=== PATIENT | female | born 1990 | race Hispanic/Latino ===

== ENCOUNTER 2016-08-18 16:44 | Emergency (ER) | payer SELFPAY ==
[2016-08-18 18:54] LABS: Bacteria,Urine 1+ /HPF (Negative); Mucus,Urine 2+ /HPF
[2016-08-18 18:55] LABS: Bilirubin,Urine NEG (Negative); Blood,Urine LG (Negative); Ketones,Urine TR mg/dL (Negative); Leukocyte Esterase,Urine MOD (Negative); Nitrite,Urine NEG (Negative); Urobilinogen,Urine < 2.0 mg/dL (<2.0)
[2016-08-18 19:00] LABS: Basophils % (Auto) 0.9 % (0.0-1.8); Eosinophils % (Auto) 1.6 % (0.0-4.3); Hematocrit 42.3 % (30.3-42.9); Hemoglobin 14.1 gm/dl (10.1-14.3); Mean Corpuscular HGB Conc 33 % (30-34); Mean Corpuscular Hemoglobin 31 pg (28-32); Mean Corpuscular Volume 92 fl (79-97); Platelet Count 239 K/mm3 (140-440); Red Cell Distribution Width 14.1 % (13.2-15.2); White Blood Count 10.4 K/mm3 (4.5-11.0)
[2016-08-18 20:04] LABS: Alanine Aminotransferase 22 units/L (7-56); Albumin 4.3 g/dL (3.9-5); Albumin/Globulin Ratio 1.5 %; Alkaline Phosphatase 96 units/L (35-129); Anion Gap 17 mmol/L; BUN/Creatinine Ratio 18.33; Bilirubin,Total 0.2 mg/dL (0.1-1.2); Blood Urea Nitrogen 11 mg/dL (7-17); Calcium 9.3 mg/dL (8.4-10.2); Carbon Dioxide 25 mmol/L (22-30); Chloride 103.3 mmol/L (98-107); Glucose 104 mg/dL (65-100); Potassium 4.9 mmol/L (3.6-5.0); Sodium 140 mmol/L (137-145); Total Protein 7.1 g/dL (6.3-8.2)
--- NOTE | 2016-08-18 21:39 | Ultrasound Report ---
FINAL REPORT EXAM: US OB \T\lt; = 14 WEEKS FETUS HISTORY: lower abd pain/ vaginal bleeding TECHNIQUE: Real-time sonography was performed of the pelvis transabdominally and endovaginally. Images are submitted for interpretation. PRIORS: None. FINDINGS: The uterus appears normal measuring 8.8 x 4.7 x 6.6 cm. There is an IUD that is adequately positioned in the endometrial canal. The endometrium appears mildly thickened and homogeneous, measuring 1.7 cm. The right ovary appears normal measuring 3.8 x 2.6 x 2.6 cm. There is a normal appearing follicle in the right ovary measuring 1.5 cm. The left ovary appears normal measuring 2.8 x 1.7 x 1.8 cm. Color duplex evaluation of the ovaries shows flow bilaterally. There is a small amount of free pelvic fluid. IMPRESSION: Mild thickening of the endometrium. Otherwise, normal pelvic ultrasound. The IUD appears adequately positioned in the endometrial canal Small amount of free pelvic fluid likely physiologic in nature.
[2016-08-19] MEDS ORDERED: ULTRAM PO ONE (00:47)
[2016-08-19] MEDS ORDERED: TORADOL IM ONE (00:47)
--- NOTE | 2016-08-19 00:48 | Emergency Department Report ---
ED General Adult HPI - General Chief complaint: Vaginal Bleeding Stated complaint: POSS MISCARRIAGE Time Seen by Provider: 08/19/16 00:36 Source: patient Mode of arrival: Ambulatory Limitations: No Limitations - History of Present Illness Initial comments: This is a 26-year-old female. She is previously unknown to me. Her medical transcription radiology is Dr. Willett. Patient reports a history of irregular menstruation. She presents to the ER wondering if she is . She reports positive home test. She has mild lower abdominal pressure , back pain, vaginal spotting, brown, yellow whitish vaginal discharge. No irritative or obstructive urinary symptoms. No vomiting. No severe right lower quadrant pain. Patient is sexually active with one male partner, does not wear condoms, no history of dyspareunia. Pain increases with palpation, decreases when laying on her side. -: Gradual Location: abdomen Radiation: back Quality: aching Consistency: intermittent Improves with: rest Worsens with: movement Associated Symptoms: malaise. denies: confusion, chest pain, cough, diaphoresis , fever/chills, headaches, loss of appetite, shortness of breath, syncope, weakness - Related Data Previous Rx's Medication Instructions Recorded Last Taken Type Ketorolac [Toradol] 10 mg PO Q6H PRN #20 tablet 08/19/16 Unknown Rx Allergies Allergy/AdvReac Type Severity Reaction Status Date / Time No Known Allergies Allergy Unverified 08/18/16 17:14 ED Review of Systems ROS: Stated complaint: POSS MISCARRIAGE Other details as noted in HPI Constitutional: denies: malaise Eyes: denies: vision change ENT: denies: epistaxis Respiratory: denies: cough Cardiovascular: denies: chest pain Gastrointestinal: abdominal pain Genitourinary: abnormal menses Musculoskeletal: back pain Skin: denies: lesions Neurological: denies: headache Psychiatric: anxiety ED Past Medical Hx - Past Medical History Previous Medical History?: No - Surgical History Past Surgical History?: No - Social History Smoking Status: Current Every Day Smoker Substance Use Type: None - Medications Home Medications: Home Medications Medication Instructions Recorded Confirmed Last Taken Type Ketorolac [Toradol] 10 mg PO Q6H PRN #20 tablet 08/19/16 Unknown Rx ED Physical Exam - General Limitations: No Limitations General appearance: alert, in no apparent distress - Head Head exam: Present: atraumatic, normocephalic - Eye Eye exam: Present: normal appearance, EOMI. Absent: nystagmus - ENT ENT exam: Present: normal exam, normal orophraynx, mucous membranes moist, normal external ear exam - Neck Neck exam: Present: normal inspection, full ROM. Absent: tenderness, meningismus - Respiratory Respiratory exam: Present: normal lung sounds bilaterally. Absent: respiratory distress, wheezes, rales, rhonchi, stridor, chest wall tenderness, accessory muscle use, decreased breath sounds, prolonged expiratory - Cardiovascular Cardiovascular Exam: Present: regular rate, normal rhythm, normal heart sounds. Absent: bradycardia, tachycardia, irregular rhythm, systolic murmur, diastolic murmur, rubs, gallop - GI/Abdominal GI/Abdominal exam: Present: soft, tenderness (all suprapubic and left lower quadrant tenderness. There is no right lower quadrant tenderness, rebound or guarding.), normal bowel sounds. Absent: distended, guarding, rebound, rigid, pulsatile mass - External exam: Present: normal external exam Speculum exam: Present: normal speculum exam, vaginal discharge Bi-manual exam: Present: normal bi-manual exam, other (during gynecologic examination, I am escorted by nurse Shawn Anderson). Absent: cervical motion tendernes - Extremities Exam Extremities exam: Present: normal inspection, full ROM, normal capillary refill. Absent: tenderness, pedal edema, joint swelling - Back Exam Back exam: Present: normal inspection, full ROM. Absent: tenderness, CVA tenderness (R), CVA tenderness (L), muscle spasm, paraspinal tenderness, vertebral tenderness - Neurological Exam Neurological exam: Present: alert, oriented X3, normal gait, other (Extraocular movements intact. Tongue midline. No facial droop. Facial sensation intact to light touch in the V1, V2, V3 distribution bilaterally. 5 and 5 strength in 4 extremities.. Sensation is intact to light touch in 4 extremities.). Absent : motor sensory deficit - Psychiatric Psychiatric exam: Present: normal affect, normal mood - Skin Skin exam: Present: warm, dry, intact, normal color. Absent: rash ED Course Vital Signs 08/18/16 08/19/16 08/19/16 17:14 01:10 01:40 Temperature 97.9 F 98.1 F Pulse Rate 95 H 78 Respiratory 18 18 18 Rate Blood Pressure 126/89 Blood Pressure 126/68 [Left] O2 Sat by Pulse 100 99 Oximetry 08/19/16 01:41 Temperature Pulse Rate Respiratory 18 Rate Blood Pressure Blood Pressure [Left] O2 Sat by Pulse 99 Oximetry - Reevaluation(s) Reevaluation #1: 08/19/16 01:37 Differential diagnosis: Urinary tract infection, pelvic inflammatory disease, dysfunctional uterine bleeding, , false positive test Assessment and plan: 26-year-old female with positive home test, with vaginal spotting lower abdominal cramping and back pain. She is afebrile with reassuring vital signs. Not noted to be . No cervical motion tenderness, no adnexal tenderness, afebrile, no leukocytosis, therefore I think pelvic inflammatory disease is very unlikely. Pelvic ultrasound demonstrates appropriate positioning of intrauterine device, with nonspecific thickening of the endometrium. There is no right lower quadrant tenderness, rebound or guarding. The patient felt improved after conservative therapy. She will be discharged at this time with pain medication, instructions to follow up with outpatient gynecology. ED Medical Decision Making - Lab Data Result diagrams: 08/18/16 18:18 08/18/16 18:18 Vital Signs 08/18/16 08/19/16 08/19/16 17:14 01:10 01:40 Temperature 97.9 F 98.1 F Pulse Rate 95 H 78 Respiratory 18 18 18 Rate Blood Pressure 126/89 Blood Pressure 126/68 [Left] O2 Sat by Pulse 100 99 Oximetry Lab Results 08/18/16 08/18/16 08/18/16 Range/Units 18:18 18:18 18:18 WBC 10.4 (4.5-11.0) K/mm3 RBC 4.60 (3.65-5.03) M/mm3 Hgb 14.1 (10.1-14.3) gm/dl Hct 42.3 (30.3-42.9) % MCV 92 (79-97) fl MCH 31 (28-32) pg MCHC 33 (30-34) % RDW 14.1 (13.2-15.2) % Plt Count 239 (140-440) K/mm3 Lymph % (Auto) 29.8 (13.4-35.0) % Esmeralda % (Auto) 8.1 H (0.0-7.3) % Eos % (Auto) 1.6 (0.0-4.3) % Baso % (Auto) 0.9 (0.0-1.8) % Lymph # 3.1 (1.2-5.4) K/mm3 Esmeralda # 0.8 (0.0-0.8) K/mm3 Eos # 0.2 (0.0-0.4) K/mm3 Baso # 0.1 (0.0-0.1) K/mm3 Seg Neutrophils % 59.6 (40.0-70.0) % Seg Neutrophils # 6.2 (1.8-7.7) K/mm3 Sodium 140 (137-145) mmol/L Potassium 4.9 (3.6-5.0) mmol/L Chloride 103.3 (98-107) mmol/L Carbon Dioxide 25 (22-30) mmol/L Anion Gap 17 mmol/L BUN 11 (7-17) mg/dL Creatinine 0.6 L (0.7-1.2) mg/dL Estimated GFR > 60 ml/min BUN/Creatinine Ratio 18.33 % Glucose 104 H (65-100) mg/dL Calcium 9.3 (8.4-10.2) mg/dL Total Bilirubin 0.2 (0.1-1.2) mg/dL AST 16 (5-40) units/L ALT 22 (7-56) units/L Alkaline Phosphatase 96 (35-129) units/L Total Protein 7.1 (6.3-8.2) g/dL Albumin 4.3 (3.9-5) g/dL Albumin/Globulin Ratio 1.5 % HCG, Quant < 2 (0-4) mIU/mL Urine Color (Yellow) Urine Turbidity (Clear) Urine pH (5.0-7.0) Ur Specific [place] (1.003-1.030) Urine Protein (Negative) mg/dL Urine Glucose (UA) (Negative) mg/dL Urine Ketones (Negative) mg/dL Urine Blood (Negative) Urine Nitrite (Negative) Ur Reducing Substances Urine Bilirubin (Negative) Urine Ictotest Urine Urobilinogen (<2.0) mg/dL Ur Leukocyte Esterase (Negative) Urine WBC (Auto) (0.0-6.0) /HPF Urine RBC (Auto) (0.0-6.0) /HPF U Epithel Cells (Auto) (0-13.0) /HPF Urine Bacteria (Auto) (Negative) /HPF Urine Mucus /HPF Blood Type Antibody Screen Ord Rhogam Gestat Weeks WEEKS 08/18/16 08/18/16 08/18/16 Range/Units 18:32 18:43 Unknown WBC (4.5-11.0) K/mm3 RBC (3.65-5.03) M/mm3 Hgb (10.1-14.3) gm/dl Hct (30.3-42.9) % MCV (79-97) fl MCH (28-32) pg MCHC (30-34) % RDW (13.2-15.2) % Plt Count (140-440) K/mm3 Lymph % (Auto) (13.4-35.0) % Esmeralda % (Auto) (0.0-7.3) % Eos % (Auto) (0.0-4.3) % Baso % (Auto) (0.0-1.8) % Lymph # (1.2-5.4) K/mm3 Esmeralda # (0.0-0.8) K/mm3 Eos # (0.0-0.4) K/mm3 Baso # (0.0-0.1) K/mm3 Seg Neutrophils % (40.0-70.0) % Seg Neutrophils # (1.8-7.7) K/mm3 Sodium (137-145) mmol/L Potassium (3.6-5.0) mmol/L Chloride (98-107) mmol/L Carbon Dioxide (22-30) mmol/L Anion Gap mmol/L BUN (7-17) mg/dL Creatinine (0.7-1.2) mg/dL Estimated GFR ml/min BUN/Creatinine Ratio % Glucose (65-100) mg/dL Calcium (8.4-10.2) mg/dL Total Bilirubin (0.1-1.2) mg/dL AST (5-40) units/L ALT (7-56) units/L Alkaline Phosphatase (35-129) units/L Total Protein (6.3-8.2) g/dL Albumin (3.9-5) g/dL Albumin/Globulin Ratio % HCG, Quant (0-4) mIU/mL Urine Color Yellow (Yellow) Urine Turbidity Slightly-cloudy (Clear) Urine pH 7.0 (5.0-7.0) Ur Specific [place] 1.026 (1.003-1.030) Urine Protein 30 mg/dl (Negative) mg/dL Urine Glucose (UA) Neg (Negative) mg/dL Urine Ketones Tr (Negative) mg/dL Urine Blood Lg (Negative) Urine Nitrite Neg (Negative) Ur Reducing Substances Not Reportable Urine Bilirubin Neg (Negative) Urine Ictotest Not Reportable Urine Urobilinogen < 2.0 (<2.0) mg/dL Ur Leukocyte Esterase Mod (Negative) Urine WBC (Auto) 9.0 H (0.0-6.0) /HPF Urine RBC (Auto) 25.0 (0.0-6.0) /HPF U Epithel Cells (Auto) 10.0 (0-13.0) /HPF Urine Bacteria (Auto) 1+ (Negative) /HPF Urine Mucus 2+ /HPF Blood Type B POSITIVE B POSITIVE Antibody Screen Negative Ord Rhogam Gestat Weeks Rh pos WEEKS - Radiology Data Radiology results: report reviewed, image reviewed transvaginal ultrasound: no acute disease mild endometrial thickening iud in place b/l ovarian flow noted to be normal No evidence of intrauterine . Otherwise, normal pelvic ultrasound Critical care attestation.: If time is entered above; I have spent that time in minutes in the direct care of this critically ill patient, excluding procedure time. ED Disposition Clinical Impression: Lower abdominal pain Disposition: DISCHARGED TO HOME OR SELFCARE Is pt being admited?: No Does the pt Need Aspirin: No Condition: Good Instructions: Dysfunctional Uterine Bleeding (ED) Additional Instructions: Take the pain medication as directed. Follow-up with an medical transcription radiology within the next week. Cultures was sent today, results will be available in the next 3-5 days. Have your private primary care doctor/[facility] doctor contact the medical records departments to obtain culture results. Take the pain medication as directed. Return to the ER right away with new pain, worsened pain, migration of pain, fevers or chills, nausea or vomiting, inability to tolerate liquid feeds. Prescriptions: Ketorolac [Toradol] 10 mg PO Q6H PRN #20 tablet PRN Reason: Pain Referrals: EDDIE SHELLEY MD [Primary Care Provider] - 3-5 Days [facility] [Provider Group] - 3-5 Days [facility] [Provider Group] - 3-5 Days [facility] [Provider Group] - 3-5 Days
[2016-08-19 01:44] VITALS: BP 126/68
== END 2016-08-19 01:57 | disposition home or self-care (01) ==
LOC: ED 16:44
DX: R10.30 Lower abdominal pain, unspecified (principal); F17.200 Nicotine dependence, unspecified, uncomplicated
CPT/HCPCS: 36415; 76830; 76856; 80053; 81001; 84702; 85025; 86850; 86900; 86901; 87210; 87591; 96372; 99284; J1885; 76801